=== PATIENT | female | born 1985 | race Caucasian/White ===

== ENCOUNTER 2017-08-03 09:49 | Inpatient (IN) ==
[2017-08-04] MEDS ORDERED: CARBOPROST 250 MCG/ML INJECTION IM PRN (16:27)
[2017-08-04] MEDS ORDERED: ZOLPIDEM 5 MG TABLET PO PRN (16:27)
[2017-08-04] MEDS ORDERED: MAG-AL + SIM ORAL LIQUID 30ml PO PRN (16:27)
[2017-08-04] MEDS ORDERED: CALCIUM CARBONATE Chewable 500mg TABLET PO PRN (16:27)
[2017-08-04] MEDS ORDERED: METHYLERGONOVINE 0.2 MG/ML INJECTION IM PRN (16:27)
[2017-08-04] MEDS ORDERED: SALINE FLUSH 10ml SYRINGE IV PRN (16:27)
[2017-08-04 16:39] VITALS: BMI 44.4
[2017-08-04] MEDS ORDERED: AMPICILLIN 2 GM in NS 100 ML IV ONE (17:15)
[2017-08-04] MEDS: LR 1,000 ML IV PRN (17:26)
[2017-08-04] MEDS: AMPICILLIN 1 GM in NS 100 ML IV SCH (21:46)
[2017-08-05] MEDS: AMPICILLIN 1 GM in NS 100 ML IV SCH ×6 (01:50→22:55)
[2017-08-05] MEDS ORDERED: D5LR 1,000 ML IV PRN (04:07)
[2017-08-05] MEDS ORDERED: ACETAMINOPHEN 500 MG TABLET PO PRN (05:00)
[2017-08-05] MEDS ORDERED: OXYTOCIN DRIP 30 UNIT/500 ML ML IV PRN (05:00)
[2017-08-05] MEDS: D5LR 1,000 ML IV SCH ×3 (05:03→17:06)
[2017-08-05] MEDS: LR 1,000 ML IV PRN ×3 (05:04→14:44)
[2017-08-05] MEDS ORDERED: ROPIVACAINE 1% 10MG/ML INJ 200 MG, SUFentanil 50 MCG in NS 100 ML EPI PRN (12:40)
[2017-08-05] MEDS ORDERED: ONDANSETRON 4 MG/2 ML INJECTION IVP PRN (12:40)
[2017-08-05] MEDS ORDERED: DiphenhydrAMINE 50 MG/ML INJECTION IVP PRN (12:40)
[2017-08-05] MEDS ORDERED: NALOXONE 0.4 MG/ML INJECTION IVP PRN (12:40)
--- NOTE | 2017-08-05 13:08 | Anesthesia Preoperative Report ---
Anesthesia Epidural/Spinal Rec - Date and Time Date: 08/05/17 Preoperative Diagnosis: / active labor Procedure: Labor Epidural Plan: Epidural - Vital Signs Vital Signs: Temperature 97.9 F 08/05/17 02:28 Pulse Rate 75 08/05/17 02:28 Respiratory Rate 18 08/05/17 02:28 Blood Pressure 127/78 08/05/17 02:28 /Para: P:0 - Medictaions & Allergies Inpatient Medications: Current Medications Acetaminophen (Tylenol) 500 - 1,000 mg PO Q4H PRN PRN Reason: Pain Hydrocodone Bitart/Acetaminophen ([place] 5/325) 1 - 2 tab PO Q4H PRN PRN Reason: Pain Al Hydroxide/Mg Hydroxide (Maalox Plus) 30 ml PO Q3H PRN PRN Reason: Indigestion Calcium Carbonate (Tums) 500 - 1,000 mg PO Q2H PRN PRN Reason: Indigestion Carboprost Tromethamine (Hemabate) 250 mcg IM O PRN PRN Reason: .Downtime Diphenhydramine HCl (Benadryl) 25 - 50 mg IVP Q3H PRN PRN Reason: Itching Dextrose/Lactated Ringer's (Dextrose 5%-Lactated Ringers) 1,000 mls @ 125 mls/ hr IV .Q8H [facility] Last Admin: 08/05/17 05:03 Dose: 125 mls/hr Lactated Ringer's (Lactated Ringers) 1,000 mls @ 999 mls/hr IV .Q1H1M PRN Last Admin: 08/05/17 09:56 Dose: 999 mls/hr Ampicillin Sodium 1 gm/ Sodium (Chloride) 100 mls @ 200 mls/hr IV Q4H [facility] Last Admin: 08/05/17 09:55 Dose: 200 mls/hr Dextrose/Lactated Ringer's (Dextrose 5%-Lactated Ringers) 1,000 mls @ 125 mls/ hr IV .Q8H PRN PRN Reason: Labor Oxytocin (Pitocin Drip) 30 unit in 500 mls @ 2 mls/hr IV .Q24H PRN; Protocol PRN Reason: Induction/Augmentation Last Admin: 08/05/17 05:03 Dose: 2 mls/hr Ropivacaine 200 mg/ Sufentanil Citrate 50 mcg/ Sodium Chloride 121 mls @ 10 mls /hr EPI PRN PRN PRN Reason: Protocol Methylergonovine Maleate (Methergine) 0.2 mg IM O PRN Misoprostol (Cytotec) 800 mcg HI ONCE PRN Naloxone HCl (Narcan) 0.1 mg IVP Q2M PRN PRN Reason: Respiratory distress Ondansetron HCl (Zofran) 4 mg IVP Q6H PRN PRN Reason: Nausea &/or vomiting Sodium Chloride (Iv Flush) 10 - 80 ml IV PRN PRN PRN Reason: Flushing Zolpidem Tartrate (Ambien) 5 mg PO O PRN PRN Reason: Insomnia Last Admin: 08/04/17 22:04 Dose: 5 mg Allergies/Adverse Reactions: Allergies Allergy/AdvReac Type Severity Reaction Status Date / Time No Known Allergies Allergy Verified 08/04/17 17:29 - Home Medications Home Medications: Home Medications Medication Instructions Recorded Confirmed Type Vitamins 1 tab PO DAILY 07/16/17 08/04/17 History cephALEXin [Cephalexin] 500 mg PO BID 08/04/17 08/04/17 History - Medical History Gastrointestional: Reports: Morbid Obesity Neuro/Musculoskeletal: Reports: Depression (hx of as a teenager) Other History: Reports: Now - Surgical History Reproductive Surgery/Treatment: DENIES: Section Anesthesia Reactions: None Hx Family Anesthesia Reaction: No History of Motion Sickness: No - Social History Smoking Status: Former smoker Second Hand Exposure: No Substance Use Type: does not use Alcohol Intake Frequency: does not drink - Pertinent Findings Lab Data: CBC and BMP 08/04/17 16:58 EKG Rhythm: Normal Sinus Rhythm - Physical Exam Respiratory Exam: lungs clear Cardiovascular Exam: regular rate and rhythm - Airway Assessment Mallampati Score: II TMD: 3 Fingerbreadths Neck Extension: fair Overall Assessment: no airway concerns - ASA ASA Score: 2 - Discussion Discussion: Discussed risks/options/alternatives of anesthesia and questions answered. Patient consents. Nursing pain assessment noted. Anesthesia Discussion: spouse Attestation Statement: Prior to the delivery of any anesthetic medication, I examined the patient, developed the plan, obtained the patient's consent and discussed the risk and benefits of the procedure with the patient/guardian.
[2017-08-05] MEDS ORDERED: OXYTOCIN DRIP 30 UNIT/500 ML ML IV SCH (19:45)
[2017-08-05] MEDS ORDERED: DiphenhydrAMINE 25 MG CAPSULE PO PRN (19:45)
[2017-08-05] MEDS ORDERED: HYDROCORTISONE 2.5% CREAM 30gm RECTALLY PRN (19:45)
[2017-08-05] MEDS: IBUPROFEN 800 MG TABLET PO PRN (20:49)
[2017-08-05] MEDS: HYDROCODONE/APAP 5mg/325mg TABLET PO PRN (22:55)
--- NOTE | 2017-08-06 07:50 | OB/GYN Progress Note ---
OB-PP Progress Note - General PPD1 Maternal Group B Strep: Positive Maternal blood type: AB+ Maternal Rubella Status: Immune - Subjective Date: 08/06/17 Lochia: Minimal Pain: controlled Voiding: voiding - Objective Vital Signs: Last Vital Signs Temp 98.1 F 08/06/17 04:15 Pulse 64 08/06/17 04:15 Resp 14 08/06/17 04:15 BP 109/65 08/06/17 04:15 Pulse Ox 100 08/06/17 04:15 Urine Output: good General: alert and oriented - Assessment Assessment: , GBS positive - Plan Plan: routine care Expected date of discharge: 08/07/17
[2017-08-06] MEDS: DOCUSATE CALCIUM 240 MG CAPSULE PO SCH (09:49)
--- NOTE | 2017-08-06 10:24 | Labor and Delivery Note ---
DATE OF DELIVERY 08/05/2017 DELIVERY NOTE Taylor is a 32-year-old 1 at 40 weeks 2 days gestational age who was brought in the prior evening for cervical ripening with a [place] bulb. She was also started on ampicillin for her group B strep status. The next morning she was started on Pitocin. Her membranes were ruptured artificially returning clear fluids. Due to patient's body habitus we were not able to trace heart tones or contractions well, so her external monitors were replaced with a DFM and IUPC. She received an epidural. Her cervix changed very slowly to 4.5 cm. Then an hour later she was 9 and +1. She labored down for an hour. She then pushed for 2 hours and rotated baby to the MARGE position. She had a spontaneous vaginal delivery of a viable female infant, Apgars 8/9, weight 3400 g, name "Kiel." Baby was vigorous at delivery, so she was placed on mom's abdomen and the cord clamping was delayed for more than 2 minutes. The umbilical cord was tightly wound. The placenta delivered spontaneously. She had a second- degree laceration that was repaired. Mom and baby tolerated the delivery well. YE
[2017-08-06] MEDS: IBUPROFEN 800 MG TABLET PO PRN (15:38)
[2017-08-06 22:09] VITALS: RESP 16
--- NOTE | 2017-08-07 08:33 | OB/GYN Progress Note ---
OB-PP Progress Note - General PPD2 Maternal Group B Strep: Positive Maternal blood type: AB+ Maternal Rubella Status: Immune - Subjective Date: 08/07/17 Lochia: Minimal Pain: controlled Voiding: voiding - Objective Vital Signs: Last Vital Signs Temp 97.8 F 08/07/17 06:30 Pulse 71 08/07/17 06:30 Resp 16 08/07/17 06:30 BP 116/72 08/07/17 06:30 Pulse Ox 100 08/06/17 12:45 General: alert and oriented Abdomen: fundus firm, non-tender Extremities: non-tender Edema Degree: 2+ - Assessment Assessment: , GBS positive - Plan Plan: routine care, discharge home, continue PNV
[2017-08-07] MEDS: IBUPROFEN 800 MG TABLET PO PRN (09:25)
[2017-08-07] MEDS: DOCUSATE CALCIUM 240 MG CAPSULE PO SCH (12:37)
[2017-08-07] MEDS: HYDROCODONE/APAP 5mg/325mg TABLET PO PRN (12:42)
[2017-08-07 14:25] VITALS: BP 133/63; PULSE 81; TEMP 98.4; O2SAT 98
--- NOTE | 2017-08-07 15:58 | Anesthesia Postoperative Note ---
- Date and Time Date: 08/07/17 Time: 15:58 - Status Patient Participated in Evaluation: Patient Participated in Person Vital Signs: Temperature 98.4 F 08/07/17 14:23 Pulse Rate 81 08/07/17 14:23 Respiratory Rate 16 08/07/17 14:23 Blood Pressure 133/63 08/07/17 14:23 Pulse Oximetry 98 08/07/17 14:23 Respiratory Function: Airway Patent Mental Status: Alert and Oriented Pain Intensity: 0 Hydration: Taking PO Fluids Complications During Recover: None Apparent - Follow-Up Instructions Instructions: Per Surgeon
== END 2017-08-07 18:52 | disposition home or self-care (01) | DRG 775 ==
LOC: MC 08-04 16:10
PROVIDERS: ADMIT Obstetrics & Gynecology; ATTEND Obstetrics & Gynecology